=== PATIENT | female | born 1940 | race African-American/Black ===

== ENCOUNTER 2024-01-11 14:08 | Emergency (ER) | payer OTHER ==
[2024-01-11 14:17] VITALS: BP 131/61; PULSE 90; RESP 16; TEMP 99.1; BMI 31.2
[2024-01-11] MEDS ORDERED: ACETAMINOPHEN INJECTION 100 ML IVPB ONE (15:14)
[2024-01-11 15:19] LABS: BASO % 0.9 % (0-2.0); EOS % 0.6 % (0-4.5); HEMATOCRIT 31.9 % (32.4-45.2); HEMOGLOBIN 10.3 GM/dL (10.7-15.3); LYMPH % 24.1 % (8-40); MCHC 32.2 g/dl (32.0-36.0); MEAN CELL VOLUME 68.4 fl (80-96); MEAN PLT VOLUME 8.8 fl (7.5-11.1); MONO % 8.6 % (3.8-10.2); NEUT % 65.8 % (42.8-82.8); PLATELET COUNT 224 10^3/uL (134-434); RBC 4.66 M/mm3 (3.60-5.2); RDW 18.9 % (11.6-15.6); WHITE BLOOD COUNT 9.3 K/mm3 (4.0-10.0)
[2024-01-11] MEDS: ACETAMINOPHEN 1000 MG/100 ML BAG IVPB ONE (15:36)
[2024-01-11 15:45] LABS: CALCIUM 9.9 mg/dL (8.5-10.1)
[2024-01-11 15:46] LABS: ANISOCYTOSIS 0; MACROCYTOSIS 0
[2024-01-11 15:49] LABS: CREATININE 0.9 mg/dL (0.55-1.3)
[2024-01-11 15:50] LABS: BILIRUBIN,TOTAL 0.7 mg/dL (0.2-1); TOT PROT 7.6 g/dl (6.4-8.2)
[2024-01-11] MEDS: LIDOCAINE 5% TOPICAL PATCH TP ONE (16:20)
[2024-01-11] MEDS ORDERED: LIDOCAINE 4% PATCH TP ONE (16:41)
[2024-01-11] MEDS: LIDOCAINE 4% PATCH TP ONE (16:49)
[2024-01-11] MEDS ORDERED: FAMOTIDINE 20 MG TABLET ONE (17:13)
[2024-01-11] MEDS ORDERED: KETOROLAC TROMETHAMINE 15 MG/ML VIAL ONE (17:13)
[2024-01-11] MEDS: FAMOTIDINE 20 MG TABLET PO ONE (17:29)
[2024-01-11] MEDS: KETOROLAC TROMETHAMINE 15 MG/ML VIAL IM ONE (17:29)
[2024-01-11] MEDS ORDERED: LIDOCAINE PATCH REMOVAL MC SCH ×2 (22:00)
== END 2024-01-11 16:51 | disposition home or self-care (01) ==
LOC: JER 14:08
PROC: 3E030NZ Introduction of Analgesics, Hypnotics, Sedatives into Peripheral Vein, Open Approach (ICD-10-PCS; principal; 2024-01-11)
PROC: 3E023GC Introduction of Other Therapeutic Substance into Muscle, Percutaneous Approach (ICD-10-PCS; 2024-01-11)
DX: M25.511 Pain in right shoulder (principal); M79.605 Pain in left leg
CPT/HCPCS: 36415; 71046-TC-FY; 73030-TC-RT-FY; 80053; 84484; 85025; 93005; 93010; 96372; 96374; 99285-25; J0131